=== PATIENT | male | born 1970 | race Caucasian/White ===

== ENCOUNTER → 2021-08-17 | Outpatient (CLI) | payer BC ==
[~2021-08-17] MED LIST: Keflex500 MG PO; Norco 5-325 Ta1 EACH PO
[2021-08-17 19:20] LABS: BASOPHILS ABSOLUTE AUTO 0.02 K/mm3 (0.00-0.23); BASOPHILS PERCENT AUTO 0 % (0-2); EOSINOPHILS ABSOLUTE AUTO 0.05 K/mm3 (0.00-0.68); EOSINOPHILS PERCENT AUTO 1 % (0-6); Hematocrit 43.5 % (37.0-53.0); Hemoglobin 15.5 g/dL (13.5-17.5); IMMATURE GRAN ABSOLUTE AUTO 0.02 K/mm3 (0.00-0.10); IMMATURE GRAN PERCENT AUTO 0 % (0-1); LYMPHOCYTES ABSOLUTE AUTO 1.68 K/mm3 (0.84-5.20); LYMPHOCYTES PERCENT AUTO 25 % (21-46); MONOCYTES ABSOLUTE AUTO 0.81 K/mm3 (0.16-1.47); MONOCYTES PERCENT AUTO 12 % (4-13); Mean Corpuscular HGB 30.6 pg (26.0-34.0); Mean Corpuscular HGB Conc 35.6 g/dL (31.5-36.5); Mean Corpuscular Volume 86 fL (80-100); Mean Platelet Volume 11.5 fL (9.1-12.4); NEUTROPHILS ABSOLUTE AUTO 4.11 K/mm3 (1.96-9.15); NEUTROPHILS PERCENT AUTO 62 % (41-73); Platelet Count 277 K/mm3 (150-400); RDW Coefficient Variation 12.2 % (11.7-14.2); RDW Standard Deviation 38.5 fL (35.1-46.3); Red Blood Cell Count 5.06 M/mm3 (4.30-5.90); White Blood Cell Count 6.69 K/mm3 (4.00-11.30)
[2021-08-17 19:30] LABS: Alanine Aminotransfer (ALT/SGP 135 U/L (12-78); Albumin, Blood 2.9 g/dL (3.4-5.0); Albumin/Globulin Ratio 0.6 (0.8-1.8); Alk Phos 104 U/L (50-136); Anion Gap 3 mmol/L (6-16); Aspartate Aminotrans (AST/SGOT 55 U/L (12-37); Bilirubin, Total 0.8 mg/dL (0.1-1.0); Blood Urea Nitrogen 18 mg/dL (8-24); Bun/Creatinine Ratio 21.4 (12.0-20.0); CO2, Blood 32 mmol/L (21-32); Chloride, Blood 106 mmol/L (98-108); Creatinine, Blood 0.84 mg/dL (0.60-1.20); Globulin, Blood 4.9 g/dL (2.2-4.0); Glomerular Filtration Rate >60 (60-); Glucose, Blood 100 mg/dL (70-99); Potassium, Blood 3.5 mmol/L (3.5-5.5); Sodium, Blood 141 mmol/L (136-145); Total Protein, Blood 7.8 g/dL (6.4-8.2)
== END | disposition home or self-care (01) ==
LOC: LAB SHORT 17:46 → LAB 17:46
PROVIDERS: Hospitalist
DX: U07.1 COVID-19 (principal)
CPT/HCPCS: 80053; 85025; 85379

== ENCOUNTER → 2021-10-14 | Outpatient (CLI) | payer BC | END | disposition home or self-care (01) | LOC: LAB SHORT 11:49 | DX: M79.674 Pain in right toe(s) (principal) | CPT/HCPCS: 84550; 85651 ==

== ENCOUNTER 2022-01-18 09:36 | Day surgery (SDC) | payer BC ==
[~2022-01-18] VITALS: Ht 182.9 cm; Wt 98.1 kg
[2022-01-18] MEDS ORDERED: LOSA50 PO (10:23)
[2022-01-18] MEDS ORDERED: HYDCHL25 PO (10:24)
== END 2022-01-18 11:25 | disposition home or self-care (01) ==
LOC: ORSCSDS 09:36
PROVIDERS: Internal Medicine Gastroenterology
PROC: 0DBK8ZX Excision of Ascending Colon, Via Natural or Artificial Opening Endoscopic, Diagnostic (ICD-10-PCS; principal; 2022-01-18 11:15)
PROC: 0DBH8ZX Excision of Cecum, Via Natural or Artificial Opening Endoscopic, Diagnostic (ICD-10-PCS; principal; 2022-01-18 11:15)
DX: Z12.11 Encounter for screening for malignant neoplasm of colon (principal); D12.0 Benign neoplasm of cecum; D12.2 Benign neoplasm of ascending colon; I10 Essential (primary) hypertension; E66.9 Obesity, unspecified; Z68.30 Body mass index [BMI] 30.0-30.9, adult; Z87.891 Personal history of nicotine dependence; Z79.899 Other long term (current) drug therapy
CPT/HCPCS: 88305; J2704; J7120

== ENCOUNTER → 2025-05-28 | Outpatient (CLI) | payer BC ==
[~2025-05-28] MED LIST changes: +HYDCHL25 PO; +LOSA50 PO
[2025-05-28 11:55] LABS: CHOL/HDL RATIO 5.0; Cholesterol 216 mg/dL (50-200); HDL Cholesterol 43 mg/dL (>39); LDL/HDL RATIO 3.5; Low Density Lipoprotein Chol 149 mg/dL (0-110); Triglycerides 118 mg/dL (30-160); Very Low Density Lipoprot Chol 23 mg/dL (6-32)
== END ==
LOC: LAB 10:51 → LAB SHORT 10:51
PROVIDERS: Hospitalist
DX: E78.5 Hyperlipidemia, unspecified (principal)
CPT/HCPCS: 80061